=== PATIENT | male | born 1940 | race Caucasian/White ===

== ENCOUNTER 2018-02-06 12:43 | Day surgery (SDC) | payer OTHER ==
[~2018-02-06] VITALS: Ht 170.2 cm; Wt 88.8 kg
[~2018-02-06 12:43] MED LIST: ASPI-621 PO; BUDE10.2 INH; BUPIVACAINE/PF 0.5% ONE; CALCIUM, MAG, ZINC PO; CHOL10003 PO; LISI1TAB5 PO; METF500T4 PO; OXYGEN NAS; POTA20TA89 PO; SIMV40TA3 PO; TAMS-11 PO; VITAMIN B12 PO
[2018-02-06] MEDS ORDERED: LACTATED RINGERS 1,000 ML IV SCH ×2 (13:17→19:00)
[2018-02-06 13:20] VITALS: BP 143/71
[2018-02-06] MEDS ORDERED: ACETAMINOPHEN 500 MG TABLET PO ONE (13:30)
[2018-02-06] MEDS ORDERED: GABAPENTIN 300 MG CAPSULE PO ONE (13:30)
[2018-02-06] MEDS ORDERED: FAMOTIDINE 20 MG TABLET PO ONE (13:30)
[2018-02-06] MEDS ORDERED: FAMOTIDINE 20 MG TABLET ONE (13:31)
[2018-02-06] MEDS ORDERED: ACETAMINOPHEN 500 MG TABLET ONE (13:32)
[2018-02-06] MEDS ORDERED: GABAPENTIN 300 MG CAPSULE ONE (13:32)
[2018-02-06] MEDS ORDERED: FENTANYL PF 250 MCG/5ML ONE (14:06)
[2018-02-06] MEDS ORDERED: ROCURONIUM 10 MG/ML,10ML ONE (14:11)
[2018-02-06] MEDS ORDERED: SUCCINYLCHOLINE 20 MG/ML, 10ML ONE (14:11)
[2018-02-06] MEDS ORDERED: ONDANSETRON 2MG/ML, 2ML ONE (14:11)
[2018-02-06] MEDS ORDERED: PROPOFOL 10 MG/ML, 20ML ONE (14:11)
[2018-02-06] MEDS ORDERED: CEFAZOLIN 1,000 MG ONE (14:11)
[2018-02-06] MEDS ORDERED: MEPERIDINE/PF 50 MG/ML ONE (14:13)
[2018-02-06] MEDS ORDERED: PROMETHAZINE 25 MG/ML, 1ML IV PRN (14:30)
[2018-02-06] MEDS ORDERED: FENTANYL PF 100 MCG/2ML IV PRN (14:30)
[2018-02-06] MEDS ORDERED: hydrALAzine 20 MG/ML, 1ML IV PRN (14:30)
[2018-02-06] MEDS ORDERED: HYDROmorphone 1 MG/ML, 1ML IV PRN (14:30)
[2018-02-06] MEDS ORDERED: LORazepam 2 MG/ML, 1ML IVPush PRN (14:30)
[2018-02-06] MEDS ORDERED: ACETAMINOPHEN 325 MG TABLET PO PRN (14:30)
[2018-02-06] MEDS ORDERED: LABETALOL 5MG/ML, 20ML IV PRN (14:30)
[2018-02-06] MEDS ORDERED: PROMETHAZINE 12.5 MG SUPP PR PRN (14:30)
[2018-02-06] MEDS ORDERED: ALBUTEROL SULFATE 2.5 MG/3 ML NPPB PRN (14:30)
[2018-02-06] MEDS ORDERED: OXYcodone 5 MG/5 ML ORAL.SOL UDC PO PRN (14:30)
[2018-02-06] MEDS ORDERED: HYDROmorphone 2 MG/ML, 1ML ONE (16:06)
[2018-02-06] MEDS ORDERED: OXYcodone 5 MG/5 ML ORAL.SOL UDC ONE (16:59)
[2018-02-06] MEDS ORDERED: OXYcodone/APAP 5/325MG TABLET PO PRN (19:00)
[2018-02-06] MEDS ORDERED: MORPHINE SULFATE 4 MG/ML, 1ML IVPush PRN (19:00)
[2018-02-06] MEDS ORDERED: ONDANSETRON 2MG/ML, 2ML IVPush PRN (19:00)
== END 2018-02-06 22:45 | disposition home or self-care (01) ==
LOC: OUT 12:43 → 4NOR 17:57 → OUT 22:45
PROVIDERS: ATTEND Surgery
DX: K40.20 Bilateral inguinal hernia, without obstruction or gangrene, not specified as recurrent (principal); K42.9 Umbilical hernia without obstruction or gangrene; I10 Essential (primary) hypertension; E78.5 Hyperlipidemia, unspecified; E11.9 Type 2 diabetes mellitus without complications; J44.9 Chronic obstructive pulmonary disease, unspecified; Z85.46 Personal history of malignant neoplasm of prostate; Z79.82 Long term (current) use of aspirin; Z96.643 Presence of artificial hip joint, bilateral; Z96.611 Presence of right artificial shoulder joint
CPT/HCPCS: 49585; 49650; C1781; J0330; J0690; J1170; J2405; J2704; J3010; J3490; J7120; S2900; J2175

== ENCOUNTER 2019-09-09 15:30 | Outpatient (CLI) | payer MEDICARE, OTHER ==
[~2019-09-09 15:30] MED LIST changes: -ASPI-621 PO; +ASPI81TA45 PO; -BUPIVACAINE/PF 0.5% ONE; +LISI1TAB19 PO; -LISI1TAB5 PO; +METF500T17 PO; -METF500T4 PO
== END 2019-09-09 23:59 | disposition home or self-care (01) ==
LOC: CFH 15:30
PROVIDERS: ATTEND Nurse Practitioner Family
DX: J44.1 Chronic obstructive pulmonary disease with (acute) exacerbation (principal); J98.11 Atelectasis; J18.9 Pneumonia, unspecified organism
CPT/HCPCS: 71046